=== PATIENT | male | born 1970 | race American Indian/Alaskan Native ===

== ENCOUNTER 2016-11-28 10:11 | Emergency (ER) | payer BC ==
[2016-11-28 10:18] VITALS: BP 122/89; PULSE 87; RESP 18; TEMP 98.4; O2SAT 98
--- NOTE | 2016-11-28 10:30 | C.PDOC ---
History Of Present Illness 46M pmh htn c/o diffuse itching over his body and intermittent rash on his arms for the last week. He denies any new environmental exposures. He has not tried anything for his sx. Time Seen by Provider: 11/28/16 10:20 Chief Complaint (Nursing): Allergic Reaction Past Medical History Vital Signs: Last Vital Signs Temp 98.4 F 11/28/16 10:14 Pulse 87 11/28/16 10:14 Resp 18 11/28/16 10:14 BP 122/89 11/28/16 10:14 Pulse Ox 98 11/28/16 10:30 - Medical History PMH: HTN Family History: States: Other Other Family History: nc - Social History Hx Alcohol Use: No Hx Substance Use: No - Immunization History Hx Tetanus Toxoid Vaccination: No Hx Influenza Vaccination: No Hx Pneumococcal Vaccination: No Review Of Systems Constitutional: Negative for: Fever Cardiovascular: Negative for: Chest Pain Respiratory: Negative for: Cough, Shortness of Breath Gastrointestinal: Negative for: Nausea, Vomiting, Abdominal Pain Neurological: Negative for: Weakness, Numbness, Headache Physical Exam - Physical Exam Appears: Well, Non-toxic, No Acute Distress Skin: Warm, Dry, No Rash Eye(s): bilateral: PERRL Oral Mucosa: Moist Tongue: No Swelling, No Lesions Lips: No Swelling, No Lesions Throat: No Erythema, No Exudate Neck: Normal ROM Cardiovascular: Rhythm Regular Respiratory: Normal Breath Sounds, No Decreased Breath Sounds, No Accessory Muscle Use, No Rales, No Rhonchi, No Stridor, No Wheezing Neurological/Psych: Oriented x3, Other (no focal deficits) ED Course And Treatment O2 Sat by Pulse Oximetry: 98 Medical Decision Making Medical Decision Making: pt showed me a picture of his rash he took on his phone- appears to be urticaria. Disposition - Disposition Referrals: [facility] at [facility] [Outside] Disposition: HOME/ ROUTINE Disposition Time: 10:33 Condition: GOOD Additional Instructions: Please follow up with a primary doctor. If the benadryl makes you too drowsy you can also try non-drowsy antihistamines such as loratidine or cetirizine. Return to the ER for any worsening symptoms or for any other concerns. Prescriptions: DiphenhydrAMINE [Benadryl] 25 - 50 mg PO Q8H PRN #20 cap PRN Reason: Allergy Symptoms Instructions: Urticaria (ED) Forms: General Discharge Instructions, Work/School/Gym Excuse - Clinical Impression Clinical Impression: Urticaria
== END 2016-11-28 10:45 | disposition home or self-care (01) ==
LOC: C.ER 10:11
DX: L50.9 Urticaria, unspecified (principal)

== ENCOUNTER 2018-06-27 15:24 | Emergency (ER) | payer BC ==
[2018-06-27 15:41] VITALS: BP 127/83; PULSE 67; RESP 19; TEMP 98.1; O2SAT 99
[2018-06-27] MEDS ORDERED: Naproxen 550 mg Tab PO STA (15:55)
[2018-06-27] MEDS ORDERED: Naproxen 550 mg Tab PO ONE (16:01)
--- NOTE | 2018-06-27 17:00 | C.PDOC ---
History Of Present Illness 47 year old male presents to the ED for evaluation of left-sided lower back pain radiating down leg for the past 5 days. Patient denies falls, injuries, abdominal pain, dysuria, hematuria, fever or sensory changes. Time Seen by Provider: 06/27/18 15:42 Chief Complaint (Nursing): Back Pain History Per: Patient History/Exam Limitations: no limitations Onset/Duration Of Symptoms: Days (5) Current Symptoms Are (Timing): Still Present Quality Of Discomfort: "Pain" Previous Symptoms: Back Pain Associated Symptoms: denies: New Weakness, New Numbness Exacerbating Factor(s): Nothing Past Medical History Reviewed: Historical Data, Nursing Documentation, Vital Signs Vital Signs: Last Vital Signs Temp 98.1 F 06/27/18 15:40 Pulse 67 06/27/18 15:40 Resp 19 06/27/18 15:40 BP 127/83 06/27/18 15:40 Pulse Ox 99 06/27/18 15:40 - Medical History PMH: HTN Surgical History: No Surg Hx Family History: States: Unknown Family Hx - Social History Hx Alcohol Use: No Hx Substance Use: No - Immunization History Hx Tetanus Toxoid Vaccination: No Hx Influenza Vaccination: No Hx Pneumococcal Vaccination: No Review Of Systems Constitutional: Negative for: Fever, Chills Gastrointestinal: Negative for: Abdominal Pain Genitourinary: Negative for: Dysuria, Hematuria Musculoskeletal: Positive for: Back Pain (left, lower ) Neurological: Negative for: Weakness, Numbness Physical Exam - Physical Exam Appears: Non-toxic, Other (in mild pain ) Skin: Normal Color, Warm, Dry Head: Atraumatic, Normacephalic Eye(s): bilateral: Normal Inspection Oral Mucosa: Moist Neck: Supple Chest: Symmetrical, No Deformity, No Tenderness Cardiovascular: Rhythm Regular, No Murmur Respiratory: Normal Breath Sounds, No Rales, No Rhonchi, No Wheezing Gastrointestinal/Abdominal: Soft, No Tenderness, No Guarding, No Rebound Back: No Vertebral Tenderness, Paraspinal Tenderness (left-sided, lumbar ) Extremity: Normal ROM, Capillary Refill (less than 2 seconds ) Neurological/Psych: Oriented x3, Normal Speech, Normal Cognition, Normal Sensation Gait: Steady ED Course And Treatment O2 Sat by Pulse Oximetry: 99 (on RA ) Pulse Ox Interpretation: Normal Progress Note: Lumbar spine XR ordered and reviewed. Shows no fracture or listhesis. Naproxen PO and Flexeril PO given. On reassessment, patient is resting comfortably, showing no signs of distress and reports an improvement in pain. Patient is stable for discharge and is advised to f/u with PMD within 1-2 days for further evaluation . Disposition Counseled Patient/Family Regarding: Studies Performed, Diagnosis, Need For Followup, Rx Given - Disposition Referrals: [facility] at [facility] [Outside] Disposition: HOME/ ROUTINE Disposition Time: 17:00 Condition: STABLE Additional Instructions: FOLLOW UP WITH YOUR DOCTOR/CLINIC IN 1-2 DAYS USE MEDICATIONS NEEDED RETURN TO ER IF SYMPTOMS WORSEN Prescriptions: Acetaminophen [Tylenol 325mg tab] 650 mg PO Q6 PRN #30 tab PRN Reason: pain/fever Cyclobenzaprine [Flexeril] 10 mg PO BID PRN #15 tab PRN Reason: Muscle Spasm Lidocaine 5% [Lidoderm] 1 patch TOP DAILY PRN #10 patch PRN Reason: pain Instructions: Low Back Pain (DC) Forms: [employer] ([place]) Print Language: YI - Clinical Impression Clinical Impression: Lumbar sprain - Scribe Statement The provider has reviewed the documentation as recorded by the Scribe (Yu Vásquez) Provider Attestation: All medical record entries made by the Scribe were at my direction and personally dictated by me. I have reviewed the chart and agree that the record accurately reflects my personal performance of the history, physical exam, medical decision making, and the department course for this patient. I have also personally directed, reviewed, and agree with the discharge instructions and disposition.
--- NOTE | 2018-06-27 18:44 | RAD ---
Date of service: 06/27/2018 PROCEDURE: Radiographs of the Lumbar Spine. HISTORY: LOW BACK PAIN COMPARISON: No prior. FINDINGS: BONES: Normal alignment. No listhesis. No fracture. Minimal endplate change. Pedicles are normal in outline. DISC SPACES: No significant disc space narrowing. OTHER FINDINGS: Minor degenerative facet changes in the lower lumbar spine region. No sacroiliac joint widening seen. Visualized sacrum is intact. IMPRESSION: No evidence of significant disc space narrowing, fracture, or malalignment.
== END 2018-06-27 17:20 | disposition home or self-care (01) ==
LOC: C.ER 15:24
DX: S33.5XXA Sprain of ligaments of lumbar spine, initial encounter (principal); X58.XXXA Exposure to other specified factors, initial encounter

== ENCOUNTER 2018-07-09 18:51 | Emergency (ER) | payer BC ==
[2018-07-09 18:58] VITALS: BP 153/99; PULSE 69; TEMP 98.5; O2SAT 97
--- NOTE | 2018-07-09 19:27 | C.PDOC ---
History Of Present Illness 47 y/o male c/o pain and burning between right 4th and 5th toes for 2-3 weeks. using cream called 'dr macrelino' with no improvement. no fevers., no numbness or tingling. Time Seen by Provider: 07/09/18 19:09 Chief Complaint (Nursing): Lower Extremity Problem/Injury History Per: Patient Onset/Duration Of Symptoms: Hrs, Days (21) Current Symptoms Are (Timing): Still Present Past Medical History Reviewed: Historical Data, Nursing Documentation, Vital Signs Vital Signs: Last Vital Signs Temp 98.5 F 07/09/18 18:56 Pulse 69 07/09/18 18:56 Resp 18 07/09/18 18:56 BP 153/99 H 07/09/18 18:56 Pulse Ox 97 07/09/18 18:56 - Medical History PMH: HTN Family History: States: Unknown Family Hx - Social History Hx Alcohol Use: No Hx Substance Use: No - Immunization History Hx Tetanus Toxoid Vaccination: No Hx Influenza Vaccination: No Hx Pneumococcal Vaccination: No Review Of Systems ENT: Positive for: Ear Pain Cardiovascular: Negative for: Chest Pain Respiratory: Negative for: Cough, Shortness of Breath Gastrointestinal: Negative for: Abdominal Pain Genitourinary: Negative for: Dysuria, Penile Discharge Skin: Positive for: Lesions (scaly patches beween toes) Neurological: Negative for: Weakness, Numbness Physical Exam - Physical Exam Appears: Non-toxic, No Acute Distress Skin: Warm, Dry Extremity: Normal ROM, Tenderness (right 4/5 web space foot with scaly plaques between toes. no erytherma, warmth, drainage or swelling noted. all nails on right foot with fungal changes to nails. ) Neurological/Psych: Oriented x3, Normal Speech, Normal Cognition, Normal Motor, Normal Sensation ED Course And Treatment O2 Sat by Pulse Oximetry: 97 Disposition Counseled Patient/Family Regarding: Diagnosis, Need For Followup, Rx Given - Disposition Referrals: [facility] at [facility] [Outside] Podiatry Clinic [Outside] Disposition: HOME/ ROUTINE Disposition Time: 19:27 Condition: GOOD Additional Instructions: Please keep feet and between toes clean and dry. Apply Lotrimin 2 times a days. Tylenol for pain. Follow up with plastic bubble packer. Prescriptions: Clotrimazole 1% Cream [Lotrimin 1% CREAM] 1 applic TOP BID #1 tube Instructions: Athlete's Foot (DC) Forms: [employer] (Spanish) - Clinical Impression Clinical Impression: Tinea pedis of right foot
[2018-07-09 19:47] VITALS: RESP 20
== END 2018-07-09 19:46 | disposition home or self-care (01) ==
LOC: C.ER 18:51
DX: B35.3 Tinea pedis (principal)